=== PATIENT | female | born 1935 | race Two or more races ===

== ENCOUNTER 2023-12-27 10:50 | Emergency (ER) | payer MEDICARE ==
[~2023-12-27] VITALS: Ht 157.5 cm; Wt 96.6 kg
[~2023-12-27 10:50] MED LIST: ALLOPURINOL100 MG PO; ARMOUR THYROID60 MG PO; ASPIRIN81 MG PO; ATENOLOL50 MG PO; ATORVASTATIN CA10 MG PO; B12 ACTIVE1000 MCG; FARXIGA10 MG; LASIX20 MG PO; LASIX40 MG PO; LIPITOR20 MG PO; LOSARTAN POTAS100 MG PO; MAGNESIUM OXID400 MG PO; NAMENDA10 MG PO; PLAVIX75 MG PO; ZETIA10 MG PO
[2023-12-27 11:10] VITALS: TEMP 98.2
[2023-12-27] MEDS ORDERED: CARVEDILOL3.125 MG PO (11:35)
[2023-12-27 14:53] VITALS: PULSE 71; RESP 18; O2SAT 98
== END 2023-12-27 15:38 | disposition home or self-care (01) ==
LOC: ER 10:59
DX: S00.83XA Contusion of other part of head, initial encounter (principal); R51.9 Headache, unspecified; M54.2 Cervicalgia; W06.XXXA Fall from bed, initial encounter; Y93.84 Activity, sleeping; Y92.89 Other specified places as the place of occurrence of the external cause; R91.8 Other nonspecific abnormal finding of lung field; K44.9 Diaphragmatic hernia without obstruction or gangrene; I10 Essential (primary) hypertension; E11.9 Type 2 diabetes mellitus without complications; I50.9 Heart failure, unspecified; E78.5 Hyperlipidemia, unspecified; E03.9 Hypothyroidism, unspecified; M10.9 Gout, unspecified
CPT/HCPCS: 70450; 71250; 72125; 99283